=== PATIENT | female | born 1990 | race American Indian/Alaskan Native ===

== ENCOUNTER 2022-02-11 19:43 | Emergency (ER) | payer MEDICAID ==
--- NOTE | 2022-02-11 22:16 | Ultrasound Report ---
US OB <= 14 WEEKS FETUS US OB TRANSVAGINAL INDICATION / CLINICAL INFORMATION: Vaginal bleeding. COMPARISON: None available. FINDINGS: Transabdominal and transvaginal imaging was performed. Complex echogenic avascular collection in the cervix may be hemorrhage. Intrauterine gestational sac is noted with pole. [place]-rump length is 5 mm (6 weeks, 2 days). N o embryonic cardiac activity was detected. Right ovary contains a small cyst. Left ovary is unremarkable. No free fluid. IMPRESSION: 1. There is an intrauterine gestational sac with pole. This is somewhat low within the body/low er uterine segment. [place]-rump length measures 6 weeks, 2 days transvaginally; however, no embryonic cardiac activity was detected. Findings could be seen in setting of demise. Correlation with se rial beta hCG levels and short-term sonographic follow-up is recommended. 2. Heterogeneity within the cervical canal may be due to blood products/hemorrhage. Signer Name: Temo Holman MD Signed: 02/11/2022 10:11 PM Workstation Name: [id number]
[2022-02-11 23:32] LABS: Basophils # (Auto) 0.1 K/mm3 (0.0-0.1); Basophils % (Auto) 0.8 % (0.0-1.8); Eosinophils # (Auto) 0.2 K/mm3 (0.0-0.4); Hematocrit 43.8 % (30.3-42.9); Hemoglobin 14.9 gm/dl (10.1-14.3); Lymphocytes # (Auto) 2.2 K/mm3 (1.2-5.4); Lymphocytes % (Auto) 12.7 % (13.4-35.0); Mean Corpuscular HGB Conc 34 % (30-34); Mean Corpuscular Volume 92 fl (79-97); Monocytes # (Auto) 0.8 K/mm3 (0.0-0.8); Monocytes % (Auto) 4.5 % (0.0-7.3); Platelet Count 323 K/mm3 (140-440); Red Blood Count 4.75 M/mm3 (3.65-5.03); Red Cell Distribution Width 13.2 % (13.2-15.2)
[2022-02-11 23:44] LABS: Blood Urea Nitrogen 9 mg/dL (7-17); Calcium 9.5 mg/dL (8.4-10.2); Hemolysis Index 9
[2022-02-11 23:49] LABS: BUN/Creatinine Ratio 13
[2022-02-12] MEDS ORDERED: SODIUM CHLORIDE 0.9% 1000 ML 1,000 ML IV ONE (03:13)
[2022-02-12] MEDS ORDERED: diphenhydrAMINE 50 MG/ML VIAL IV ONE (03:13)
[2022-02-12] MEDS ORDERED: METOCLOPRAMIDE 10 MG/2 ML INJ IV ONE (03:13)
--- NOTE | 2022-02-12 03:14 | Emergency Department Report ---
ED HPI - General Chief complaint: Vaginal Bleeding Stated complaint: /BLEEDING Time Seen by Provider: 02/12/22 03:07 Source: patient Mode of arrival: Ambulatory Limitations: No Limitations - Related Data Previous Rx's Medication Instructions Recorded Last Taken Type Metoclopramide [Reglan] 10 mg PO TID #15 tab 02/12/22 Unknown Rx cephALEXin [Keflex] 500 mg PO BID 7 Days #14 cap 02/12/22 Unknown Rx diphenhydrAMINE [Benadryl CAP] 25 mg PO Q8HR PRN #15 capsule 02/12/22 Unknown Rx Allergies Allergy/AdvReac Type Severity Reaction Status Date / Time latex Allergy Mild Itching Verified 02/11/22 21:00 ED Review of Systems ROS: Stated complaint: /BLEEDING Other details as noted in HPI ED Past Medical Hx - Medications Home Medications: Home Medications Medication Instructions Recorded Confirmed Last Taken Type Metoclopramide [Reglan] 10 mg PO TID #15 tab 02/12/22 Unknown Rx cephALEXin [Keflex] 500 mg PO BID 7 Days #14 cap 02/12/22 Unknown Rx diphenhydrAMINE [Benadryl CAP] 25 mg PO Q8HR PRN #15 capsule 02/12/22 Unknown Rx ED Physical Exam - General Limitations: No Limitations ED Course Vital Signs 02/11/22 20:53 Temperature 99.2 F Pulse Rate 85 Respiratory 18 Rate Blood Pressure 134/91 [Right] O2 Sat by Pulse 97 Oximetry ED Medical Decision Making - Lab Data Result diagrams: 02/11/22 22:49 02/11/22 22:49 Labs 02/11/22 02/11/22 02/11/22 22:49 22:49 22:49 WBC 16.9 H RBC 4.75 Hgb 14.9 H Hct 43.8 H MCV 92 MCH 31 MCHC 34 RDW 13.2 Plt Count 323 Lymph % (Auto) 12.7 L [place] % (Auto) 4.5 Eos % (Auto) 1.0 Baso % (Auto) 0.8 Lymph # (Auto) 2.2 [place] # (Auto) 0.8 Eos # (Auto) 0.2 Baso # (Auto) 0.1 Seg Neutrophils % 81.0 H Seg Neutrophils # 13.7 H Sodium 135 L Potassium 4.1 Chloride 100.8 Carbon Dioxide 25 Anion Gap 13 BUN 9 Creatinine 0.7 Estimated GFR > 60 BUN/Creatinine Ratio 13 Glucose 173 H Calcium 9.5 HCG, Quant 3255 H Blood Type Antibody Screen 02/11/22 22:49 WBC RBC Hgb Hct MCV MCH MCHC RDW Plt Count Lymph % (Auto) [place] % (Auto) Eos % (Auto) Baso % (Auto) Lymph # (Auto) [place] # (Auto) Eos # (Auto) Baso # (Auto) Seg Neutrophils % Seg Neutrophils # Sodium Potassium Chloride Carbon Dioxide Anion Gap BUN Creatinine Estimated GFR BUN/Creatinine Ratio Glucose Calcium HCG, Quant Blood Type A POSITIVE Antibody Screen Negative - Radiology Data Radiology results: report reviewed, image reviewed US OB <= 14 WEEKS FETUS US OB TRANSVAGINAL INDICATION / CLINICAL INFORMATION: Vaginal bleeding. COMPARISON: None available. FINDINGS: Transabdominal and transvaginal imaging was performed. Complex echogenic avascular collection in the cervix may be hemorrhage. Intrauterine gestational sac is noted with pole. [place]-rump length is 5 m m (6 weeks, 2 days). No embryonic cardiac activity was detected. Right ovary contains a small cyst. Left ovary is unremarkable. No free fluid. IMPRESSION: 1. There is an intrauterine gestational sac with pole. This is somewhat low within the body/lower uterine segment. [place]-rump length measures 6 weeks, 2 days transvaginally; however, no embryonic cardiac activity was detected. Findings could be seen in setting of demise. Correlation with serial beta hCG levels and short-term sonographic follow-up is recommended. 2. Heterogeneity within the cervical canal may be due to blood products/hemorrhage. Signer Name: Temo Holman MD Signed: 02/11/2022 10:11 PM Workstation Name: [id number] Transcribed By: SOM Dictated By: Temo Holman MD Electronically Authenticated By: Temo Holman MD Signed Date/Time: 02/11/222210 DD/ 06 TD/TT: - Medical Decision Making Patient is currently tolerating p.o. intake without nausea or vomiting.;, Back pain or stomach pain at this time. Patient denies fevers or chills there is no ultrasound as above diagnosis threatened miscarriage, plan follow-up with RN EMERGENCY ROOM in 1 to 2 days. Return to emergency department should symptoms worsen. Patient verbalized agreement and understanding with discharge plan. Patient will be DC'd home in stable condition at this time. Critical care attestation.: If time is entered above; I have spent that time in minutes in the direct care of this critically ill patient, excluding procedure time. ED Disposition Clinical Impression: Threatened miscarriage in early Disposition: 01 HOME / SELF CARE / HOMELESS Is pt being admited?: No Does the pt Need Aspirin: No Condition: Stable Instructions: Threatened Miscarriage, Vaginal Bleeding During , First Trimester Additional Instructions: Take medications as prescribed, follow-up with RN EMERGENCY ROOM in 1 to 2 days. Return to emergency department should symptoms worsen. Prescriptions: diphenhydrAMINE [Benadryl CAP] 25 mg PO Q8HR PRN #15 capsule PRN Reason: Nausea And Vomiting cephALEXin [Keflex] 500 mg PO BID 7 Days #14 cap Metoclopramide [Reglan] 10 mg PO TID #15 tab Referrals: BLANCA DOBBINS MD [Staff Physician] - 3-5 Days Forms: Work/School Release Form(ED) Time of Disposition: 04:23
[2022-02-12 03:58] LABS: Mucus,Urine 1+ /HPF
[2022-02-12 04:06] LABS: Color,Urine Yellow (Yellow)
[2022-02-12 04:52] VITALS: BP 132/87
== END 2022-02-12 05:10 | disposition home or self-care (01) ==
LOC: ED 19:43
DX: O20.0 Threatened abortion (principal); Z91.041 Radiographic dye allergy status
CPT/HCPCS: 36415; 76801; 76817; 80048; 81001; 84702; 85025; 86850; 86900; 86901; 96361; 96374; 96375; 99284; J1200; J2765; J7030